=== PATIENT | female | born 1950 | race Two or more races ===

== ENCOUNTER 2022-12-09 02:54 | Observation (INO) | payer OTHER ==
[2022-12-09] MEDS ORDERED: FAMOTIDINE 20 MG/50 ML IVPB 20 MG/50 ML MG IVPB ONE ×2 (03:20→03:27)
[2022-12-09] MEDS ORDERED: ONDANSETRON 4 MG/2 ML VIAL IVPUSH ONE (03:20)
[2022-12-09] MEDS ORDERED: MAG HYDROX/AL HYDROX/SIMETH 30 ML UNIT-DOSE CUP PO ONE (03:20)
[2022-12-09] MEDS ORDERED: MAG HYDROX/AL HYDROX/SIMETH 30 ML UNIT-DOSE CUP ONE (03:27)
[2022-12-09] MEDS ORDERED: ONDANSETRON 4 MG/2 ML VIAL ONE (03:27)
[2022-12-09 04:45] LABS: BASO % 0.7 % (0-2.0); EOS % 2.3 % (0-4.5); HEMATOCRIT 30.7 % (32.4-45.2); HEMOGLOBIN 10.3 GM/dL (10.7-15.3); LYMPH % 26.2 % (8-40); MCH 24.4 pg (25.7-33.7); MCHC 33.6 g/dl (32.0-36.0); MEAN CELL VOLUME 72.7 fl (80-96); MEAN PLT VOLUME 8.4 fl (7.5-11.1); MONO % 6.3 % (3.8-10.2); NEUT % 64.5 % (42.8-82.8); PLATELET COUNT 333 10^3/uL (134-434); RBC 4.22 M/mm3 (3.60-5.2); RDW 13.6 % (11.6-15.6); WHITE BLOOD COUNT 12.6 K/mm3 (4.0-10.0)
[2022-12-09 04:58] LABS: INR 0.95 (0.83-1.09)
[2022-12-09 05:01] LABS: ACTIVATED PTT 26.8 SECONDS (25.2-36.5)
[2022-12-09 05:26] LABS: ALBUMIN 3.7 g/dl (3.4-5.0); BLOOD UREA NITROGEN 29.2 mg/dL (7-18); CALCIUM 9.4 mg/dL (8.5-10.1); POTASSIUM 4.4 mmol/L (3.5-5.1)
[2022-12-09 05:29] LABS: BILIRUBIN,TOTAL 0.1 mg/dL (0.2-1); CREATININE 1.4 mg/dL (0.55-1.3); TOT PROT 7.8 g/dl (6.4-8.2)
[2022-12-09] MEDS ORDERED: ASPIRIN 81 MG CHEWABLE TABLETS PO ONE (06:13)
[2022-12-09] MEDS: DEXTROSE 5%-NORMAL SALINE 1,000 ML IV SCH ×2 (06:42→18:19)
[2022-12-09] MEDS ORDERED: PANTOPRAZOLE SODIUM 40 MG VIAL ONE (08:53)
[2022-12-09] MEDS ORDERED: PANTOPRAZOLE SODIUM 40 MG VIAL IVPUSH SCH (10:00)
[2022-12-09] MEDS ORDERED: ONDANSETRON *ODT* 4 MG TABLET SL PRN (12:53)
[2022-12-09 16:36] VITALS: BMI 20.1
[2022-12-09] MEDS: INSULIN SLIDING SCALE (NOVOLOG) 1 VIAL SQ SCH ×2 (17:04→22:36)
[2022-12-09] MEDS ORDERED: ATORVASTATIN CA 20 MG TABLET (FP) PO SCH (22:00)
[2022-12-10] MEDS: INSULIN SLIDING SCALE (NOVOLOG) 1 VIAL SQ SCH ×2 (06:00→11:44)
[2022-12-10 09:02] LABS: HEMATOCRIT 29.6 % (32.4-45.2); HEMOGLOBIN 9.8 GM/dL (10.7-15.3); MCH 24.2 pg (25.7-33.7); MCHC 33.2 g/dl (32.0-36.0); MEAN CELL VOLUME 73.1 fl (80-96); MEAN PLT VOLUME 8.5 fl (7.5-11.1); PLATELET COUNT 314 10^3/uL (134-434); RBC 4.04 M/mm3 (3.60-5.2); RDW 13.7 % (11.6-15.6); WHITE BLOOD COUNT 9.1 K/mm3 (4.0-10.0)
[2022-12-10] MEDS: DEXTROSE 5%-NORMAL SALINE 1,000 ML IV SCH (09:13)
[2022-12-10 09:42] LABS: ALBUMIN 3.2 g/dl (3.4-5.0); BLOOD UREA NITROGEN 18.2 mg/dL (7-18); CALCIUM 8.9 mg/dL (8.5-10.1)
[2022-12-10 09:45] LABS: BILIRUBIN,TOTAL 0.2 mg/dL (0.2-1); CREATININE 1.1 mg/dL (0.55-1.3)
[2022-12-10] MEDS ORDERED: PANTOPRAZOLE 20 MG TABLET PO SCH (10:00)
[2022-12-10 11:59] LABS: POTASSIUM 4.4 mmol/L (3.5-5.1)
[2022-12-10 13:23] VITALS: BP 149/69; PULSE 69; RESP 17; TEMP 98.6
== END 2022-12-10 15:15 | disposition home health service (06) ==
LOC: JER 02:54 → EDBD 02:54 → JERBED 06:21 → J7W 17:56
PROVIDERS: ADMIT Family Medicine; ATTEND Family Medicine
PROC: 3E033GC Introduction of Other Therapeutic Substance into Peripheral Vein, Percutaneous Approach (ICD-10-PCS; principal; 2022-12-09)
DX: I24.9 Acute ischemic heart disease, unspecified (principal); I10 Essential (primary) hypertension; R10.13 Epigastric pain; E11.65 Type 2 diabetes mellitus with hyperglycemia; R61 Generalized hyperhidrosis; E78.5 Hyperlipidemia, unspecified; R68.83 Chills (without fever); M62.81 Muscle weakness (generalized); N17.9 Acute kidney failure, unspecified; D50.9 Iron deficiency anemia, unspecified
CPT/HCPCS: 36415; 71045-TC-FY; 80053; 80061; 82150; 82728; 82962; 83036; 83540; 83550; 83605; 83690; 84484; 85025; 85027; 85610; 85730; 93005; 93010; 96365; 96375; 99285-25; G0378